=== PATIENT | female | born 1965 | race Caucasian/White ===

== ENCOUNTER → 2020-04-04 | Day surgery (SDC) | payer OTHER ==
--- OUTSIDE RECORDS SUMMARY | 2020-04-04 10:18 | XMS ---
:1965 Author Organization [facility] Care Team Providers Name Role Phone Trey Stern Unavailable Apuzzo, Ken Unavailable Apuzzo, Ken Unavailable Apuzzo, Ken Unavailable Apuzzo, Ken Unavailable Apuzzo, Ken Unavailable Apuzzo, Ken Unavailable Apuzzo, Ken Unavailable Apuzzo, Ken Unavailable Apuzzo, Ken Unavailable Re-disclosure Warning The records that you are about to access may contain information from federally- assisted alcohol or drug abuse programs. If such information is present, then the following federally mandated warning applies: This information has been disclosed to you from records protected by federal confidentiality rules (42 CFR part 2). The federal rules prohibit you from making any further disclosure of this information unless further disclosure is expressly permitted by the written consent of the person to whom it pertains or as otherwise permitted by 42 CFR part 2. A general authorization for the release of medical or other information is NOT sufficient for this purpose. The Federal rules restrict any use of the information to criminally investigate or prosecute any alcohol or drug abuse patient.The records that you are about to access may contain highly sensitive health information, the redisclosure of which is protected by Article 27-F of the [place] State Public Health law. If you continue you may haveaccess to information: Regarding HIV / AIDS; Provided by facilities licensed or operated by the [facility] Office of Mental Health; or Provided by the [facility] Office for People With Developmental Disabilities. If such information is present, then the following [facility] mandated warning applies: This information has been disclosed to you from confidential records which are protected by state law. State law prohibits you from making any further disclosure of this information without the specific written consent of the person to whom it pertains, or as otherwise permitted by law. Any unauthorized further disclosure in violation of state law may result in a fine or penitentiary sentence or both. A general authorization for the release of medical or other information is NOT sufficient authorization for further disclosure. Encounters Encounter Providers Location Date Indications Data Source(s ) Attender: Trey 03/17/2020 [facility] ( [facility] [place] 12:00:00 AM ED Medical, ) Office Attender: Trey Stern 03/17/2020 12:00:00 AM EDT [facility] ([facility]) Office Attender: Trey Stern 02/25/2020 12:00:00 AM EDT [facility] ([facility]) Office Attender: Trey Stern 02/25/2020 12:00:00 AM EDT [facility] ([facility]) Office Attender: Trey Stern 02/25/2020 12:00:00 AM EDT [facility] ([facility]) Office Medications Medication Brand Start Product Dose Route Administrative Pharmacy [facility] Indications Reaction Description Data Name Date Form Instructions Instructions Source(s) atorvastati ATORVA 03/17/ TABLET 90 complet ATOR VASTATIN [facility] (St n 10 MG STATIN 2019 [facility] Oral Tablet :03330 12:00: Medi miranda, ATORVASTATI 2 00 AM PC) N:[id number] EDT cetirizine CETIRI 02/24/ TABLET 30 complet CETIR IZINE [facility] (St [facility] [id number] 12:00: Medical , Oral Tablet 00 AM PC) CETIRIZINE: EDT [id number] Aspirin 81 ASPIR 02/24/ DELAYED 90 complet ASPIR 81 [facility] (St MG Delayed 81:308 2019 RELEASE ed [facility] 416 12:00: TABLET Medical, Oral Tablet 00 AM PC) ASPIR EDT 81:074059 cetirizine CETIRI 02/24/ TABLET 30 complet CETIR IZINE [facility] (St hydrochlori ZINE:1 2019 ed [facility] de 10 MG [id number] 12:00: Medical , Oral Tablet 00 AM PC) CETIRIZINE: EDT [id number] Aspirin 81 ASPIR 02/24/ DELAYED 90 complet ASPIR 81 [facility] (St MG Delayed 81:308 2020 RELEASE ed [facility] 416 12:00: TABLET Medical, Oral Tablet 00 AM PC) ASPIR EDT 81:[id number] Insurance Providers Payer name Policy type Policy ID Covered Covered libertarian's Policy P reji / Coverage libertarian ID relationship to Love Inf ormation type love YOHANNES [id number] [place] [address] NON [facility] CARE [id number] [place] [id number] ESSENTIAL ([employer]/[place]) MEGAN Problems, Conditions, and Diagnoses Code Display Name Description Problem Type Effective Data Sour ce(s) Dates E55.9 Vitamin D VITAMIN D Problem 03/17/2020 [facility] (St deficiency, DEFICIENCY, 12:00:00 AM [facility], unspecified UNSPECIFIED EDT PC) E78.5 Hyperlipidemia, HYPERLIPIDEMIA, Problem 02/25/2020 MEDG EN (St unspecified UNSPECIFIED 12:00:00 AM [facility], EDT PC) Z00.01 Encounter for ENCOUNTER FOR Problem 02/25/2020 [facility] ( St general adult GENERAL ADULT 12:00:00 AM [facility], medical MEDICAL EDT PC) examination with EXAMINATION WITH abnormal findings ABNORMAL FINDINGS R06.02 Shortness of SHORTNESS OF Problem 02/25/2020 [facility] (St breath BREATH 12:00:00 AM [facility], EDT PC) E78.5 Hyperlipidemia, HYPERLIPIDEMIA, Problem 02/25/2020 MED[facility] EN (St unspecified UNSPECIFIED 12:00:00 AM [facility], EDT PC) Z00.01 Encounter for ENCOUNTER FOR Problem 02/25/2020 [facility] ( St general adult GENERAL ADULT 12:00:00 AM [facility], medical MEDICAL EDT PC) examination with EXAMINATION WITH abnormal findings ABNORMAL FINDINGS R06.02 Shortness of SHORTNESS OF Problem 02/25/2020 [facility] (St breath BREATH 12:00:00 AM [facility], EDT PC) M54.5 Low back pain LOW BACK PAIN Problem 07/30/2017 [facility] ( St 12:00:00 AM [facility], EST PC) I49.9 Cardiac CARDIAC Problem 07/30/2017 [facility] (St arrhythmia, ARRHYTHMIA, 12:00:00 AM [facility], unspecified UNSPECIFIED EST PC) G43.009 Migraine without MIGRAINE WITHOUT Problem 07/30/2017 ME D[facility] (St aura, not AURA, NOT 12:00:00 AM [facility], intractable, INTRACTABLE, EST PC) without status WITHOUT STATUS migrainosus MIGRAINOSUS R31.9 Hematuria, HEMATURIA, Problem 07/30/2017 [facility] (St unspecified UNSPECIFIED 12:00:00 AM [facility], EST PC) R00.2 Palpitations PALPITATIONS Problem 07/30/2017 [facility] (St 12:00:00 AM [facility], EST PC) M54.5 Low back pain LOW BACK PAIN Problem 07/30/2017 [facility] ( St 12:00:00 AM [facility], EST PC) I49.9 Cardiac CARDIAC Problem 07/30/2017 [facility] (St arrhythmia, ARRHYTHMIA, 12:00:00 AM [facility], unspecified UNSPECIFIED EST PC) G43.009 Migraine without MIGRAINE WITHOUT Problem 07/30/2017 ME D[facility] (St aura, not AURA, NOT 12:00:00 AM [facility], intractable, INTRACTABLE, EST PC) without status WITHOUT STATUS migrainosus MIGRAINOSUS R31.9 Hematuria, HEMATURIA, Problem 07/30/2017 [facility] (St unspecified UNSPECIFIED 12:00:00 AM [facility], EST PC) R00.2 Palpitations PALPITATIONS Problem 07/30/2017 [facility] (St 12:00:00 AM [facility], EST PC) M79.7 Fibromyalgia FIBROMYALGIA Problem 11/15/2016 [facility] (St 12:00:00 AM [facility], EDT PC) E78.2 Mixed MIXED Problem 11/15/2016 [facility] (St hyperlipidemia HYPERLIPIDEMIA 12:00:00 AM [facility], EDT PC) R10.2 Pelvic and PELVIC AND Problem 11/15/2016 [facility] (St perineal pain PERINEAL PAIN 12:00:00 AM [facility], EDT PC) M79.7 Fibromyalgia FIBROMYALGIA Problem 11/15/2016 [facility] (St 12:00:00 AM [facility], EDT PC) E78.2 Mixed MIXED Problem 11/15/2016 [facility] (St hyperlipidemia HYPERLIPIDEMIA 12:00:00 AM [facility], EDT PC) R10.2 Pelvic and PELVIC AND Problem 11/15/2016 [facility] (St perineal pain PERINEAL PAIN 12:00:00 AM [facility], EDT PC) Z11.1 Encounter for Encounter for Diagnosis 09/02/2018 [facility] screening for screening for 07:32:43 PM [place] respiratory respiratory [facility]) Surgeries/Procedures Procedure Description Date Indications Data Source(s) Documentation of current 03/17/2020 [facility] ([facility] medications (procedure) 12:00:00 AM EDT sammie, NATALIE) OFFICE OUTPATIENT VISIT 03/17/2020 [facility] ([facility] 15 MINUTES 12:00:00 AM EDT Medical, PC) Documentation of current 02/25/2020 [facility] ([facility] medications (procedure) 12:00:00 AM EDT sammie PC) Documentation of current 02/25/2020 [facility] ([facility] medications (procedure) 12:00:00 AM EDT sammie, PC) Documentation of current 02/25/2020 [facility] ([facility] medications (procedure) 12:00:00 AM EDT sammie, PC) Documentation of current 02/25/2020 [facility] ([facility] medications (procedure) 12:00:00 AM EDT sammie, PC) ECG ROUTINE ECG W/LEAST 02/25/2020 [facility] ([facility] 12 LDS W/I&R 12:00:00 AM EDT Medical, PC) COLLECTION VENOUS BLOOD 02/25/2020 [facility] ([facility] VENIPUNCTURE 12:00:00 AM EDT Medical, PC) Documentation of current 02/25/2020 [facility] ([facility] medications (procedure) 12:00:00 AM EDT sammie, PC) Documentation of current 02/25/2020 [facility] ([facility] ECG ROUTINE ECG W/LEAST 02/25/2020 [facility] ([facility] 12 LDS W/I&R 12:00:00 AM EDT Medical, ) COLLECTION VENOUS BLOOD 02/25/2020 [facility] ([facility] VENIPUNCTURE 12:00:00 AM EDT Medical, ) OFFICE OUTPATIENT VISIT 07/30/2017 [facility] ([facility] 15 MINUTES 12:00:00 AM EST Medical, ) HANDLG&/OR CONVEY OF SPEC 07/30/2017 ME D[facility] ([facility] FOR TR OFFICE TO LAB 12:00:00 AM EST [facility], ) ECG ROUTINE ECG W/LEAST 07/30/2017 [facility] EN ([facility] 12 LDS W/I&R 12:00:00 AM EST Medical, ) COLLECTION VENOUS BLOOD 07/30/2017 [facility] EN ([facility] VENIPUNCTURE 12:00:00 AM EST Medical, ) OFFICE OUTPATIENT VISIT 07/30/2017 [facility] ([facility] 15 MINUTES 12:00:00 AM EST Medical, PC) HANDLG&/OR CONVEY OF SPEC 07/30/2017 ME D[facility] ([facility] FOR TR OFFICE TO LAB 12:00:00 AM EST [facility], ) ECG ROUTINE ECG W/LEAST 07/30/2017 [facility] EN ([facility] 12 LDS W/I&R 12:00:00 AM EST Medical, ) COLLECTION VENOUS BLOOD 07/30/2017 [facility] EN ([facility] VENIPUNCTURE 12:00:00 AM EST Medical, ) OFFICE OUTPATIENT VISIT 11/15/2016 [facility] ([facility] 15 MINUTES 12:00:00 AM EDT Medical, ) COLLECTION VENOUS BLOOD 11/15/2016 [facility] EN ([facility] VENIPUNCTURE 12:00:00 AM EDT Medical, PC) OFFICE OUTPATIENT VISIT 11/15/2016 [facility] ([facility] 15 MINUTES 12:00:00 AM EDT Medical, PC) COLLECTION VENOUS BLOOD 11/15/2016 [facility] EN ([facility] VENIPUNCTURE 12:00:00 AM EDT Medical, ) Results ID Date Data Source [id number] 02/25/2020 12:00:00 AM EDT [facility] (St [facility], ) Name Value Range Interpretation Description Data Sup porting Code Source(s) Document(s ) Vitamin D, 17.7 Below low normal [facility] (St 25-Hydroxy ng/mL [facility]) ID Date Data Source [id number] 02/25/2020 12:00:00 AM EDT [facility] ([facility], ) Name Value Range Interpretation Description Data Sup porting Code Source(s) Document(s ) Cholesterol 277 Above high normal [facility] (St [Mass/volume] in mg/dL [facility] Serum or Plasma [facility], ) Triglyceride 190 Above high normal [facility] (S t [Mass/volume] in mg/dL [facility]'s Serum or Plasma [facility], ) HDL Cholesterol 56 mg/dL Normal (applies [facility] ( St to non-numeric [facility] results) Medical, ) VLDL Cholesterol 38 mg/dL Normal (applies [facility] (St Miranda to non-numeric [facility] results) Medical, ) LDL Cholesterol 183 Above high normal [facility] (St Calc mg/dL [facility]) ID Date Data Source [id number] 02/25/2020 12:00:00 AM EDT [facility] ([facility], ) Name Value Range Interpretation Description Data Sup porting Code Source(s) Document(s ) Glucose 112 Above high [facility] (St [Mass/volume] in mg/dL normal [facility] Urine collected for Medical, unspecified PC) duration Urea nitrogen 14 mg/dL Normal (applies [facility] (St [Mass/volume] in to non-numeric [facility] Serum or Plasma results) Medical, ) Creatinine 0.79 Normal (applies [facility] (St [Interpretation] in mg/dL to non-numeric [facility] Urine results) Medical, ) eGFR If Africn Am 97 Normal (applies [facility] (St mL/min/1 to non-numeric [facility] .73 results) Medical, PC) eGFR If NonAfricn 85 Normal (applies [facility] (St Am mL/min/1 to non-numeric [facility] .73 results) Medical, ) BUN/Creatinine 18 Normal (applies [facility] (S t Ratio to non-numeric [facility] results) Medical, ) Sodium 138 Normal (applies [facility] (St [Moles/volume] in mmol/L to non-numeric [facility] Serum or Plasma results) Medical, PC) Potassium 4.1 Normal (applies [facility] (St [Mass/volume] in mmol/L to non-numeric [facility] Blood results) Medical, ) Chloride 102 Normal (applies [facility] (St [Moles/volume] in mmol/L to non-numeric [facility] Serum or Plasma results) Medical, ) Carbon dioxide, 24 Normal (applies [facility] ( St total mmol/L to non-numeric [facility] [Moles/volume] in results) Medical, Serum or Plasma PC) Calcium 9.5 Normal (applies [facility] (St [Moles/volume] in mg/dL to non-numeric [facility] Urine collected for results) Medical, unspecified PC) duration Protein 7.5 g/dL Normal (applies [facility] (St [Mass/volume] in to non-numeric [facility] Serum or Plasma results) Medical, ) Microalbumin 4.8 g/dL Normal (applies [facility] (St [Mass/time] in to non-numeric [facility] Urine collected for results) Medical, unspecified PC) duration Globulin, Total 2.7 g/dL Normal (applies [facility] ( St to non-numeric [facility] results) Medical, PC) A/G Ratio 1.8 Normal (applies [facility] (St to non-numeric [facility] results) Medical, PC) Bilirubin.total 0.8 Normal (applies [facility] ( St [Mass/volume] in mg/dL to non-numeric [facility] Serum or Plasma results) Medical, ) Alkaline 85 IU/L Normal (applies [facility] (St phosphatase to non-numeric [facility] [Enzymatic results) Medical, activity/volume] in PC) Serum, Plasma or Blood Aspartate 17 IU/L Normal (applies [facility] (St aminotransferase to non-numeric [facility] [Enzymatic results) Medical, activity/volume] in PC) Serum or Plasma Alanine 21 IU/L Normal (applies [facility] (St aminotransferase to non-numeric [facility] [Enzymatic results) Medical, activity/volume] in PC) Serum or Plasma ID Date Data Source [id number] 02/25/2020 12:00:00 AM EDT [facility] ([facility], ) Name Value Range Interpretation Description Data Sup porting Code Source(s) Document(s ) Leukocytes 6.9 Normal (applies [facility] (St [#/volume] in x10E3/uL to non-numeric [facility] Blood by results) [facility], ) Automated count Erythrocytes 4.82 Normal (applies [facility] (St [#/volume] in x10E6/uL to non-numeric [facility] Blood by results) [facility], ) Automated count Hemoglobin 14.2 Normal (applies [facility] (St [Mass/volume] in g/dL to non-numeric [facility] Blood results) [facility], ) Hematocrit 41.7 % Normal (applies [facility] (St [Volume to non-numeric [facility] Fraction] of results) [facility], ) Blood by Automated count MCV 87 fL Normal (applies [facility] (St to non-numeric [facility] results) [facility], ) MCH 29.5 pg Normal (applies [facility] (St to non-numeric [facility] results) [facility], ) MCHC 34.1 Normal (applies [facility] (St g/dL to non-numeric [facility] results) [facility], ) RDW 13.2 % Normal (applies [facility] (St to non-numeric [facility] results) [facility], ) Platelets 298 Normal (applies [facility] (St [#/area] in x10E3/uL to non-numeric [facility] Blood by results) [facility], ) Microscopy high power field Neutrophils [#] 49 % Normal (applies [facility] ( St in Body fluid by to non-numeric [facility] Manual count results) [facility], ) Lymphs 42 % Normal (applies [facility] (St to non-numeric [facility] results) [facility], ) Monocytes 6 % Normal (applies [facility] (St [#/volume] in to non-numeric [facility] Cord blood results) [facility], ) Eos 2 % Normal (applies [facility] (St to non-numeric [facility] results) [facility], ) Basos 1 % Normal (applies [facility] (St to non-numeric [facility] results) [facility], ) Neutrophils 3.4 Normal (applies [facility] (St (Absolute) x10E3/uL to non-numeric [facility] results) [facility], ) Lymphs 2.9 Normal (applies [facility] (St (Absolute) x10E3/uL to non-numeric [facility] results) [facility], ) Monocytes(Absolu 0.4 Normal (applies [facility] (St te) x10E3/uL to non-numeric [facility] results) Medical, ) Eos (Absolute) 0.2 Normal (applies [facility] (S t x10E3/uL to non-numeric [facility] results) Medical, ) Baso (Absolute) 0.0 Normal (applies [facility] ( St x10E3/uL to non-numeric [facility] results) Medical, ) Immature 0 % Normal (applies [facility] (St Granulocytes to non-numeric [facility] results) Medical, ) Immature Grans 0.0 Normal (applies [facility] (S t (Abs) x10E3/uL to non-numeric [facility] results) Medical, ) ID Date Data Source [id number] 02/25/2020 12:00:00 AM EDT [facility], ) Name Value Range Interpretation Code Description Data Rhonda rce(s) Supporting Document(s ) TSH 2.060 Normal (applies to [facility] (St uIU/mL non-numeric [facility] results) Medical, ) T4,Free(D 1.09 ng/dL Normal (applies to [facility] (St irect) non-numeric [facility] results) Medical, ) ID Date Data Source [id number] 02/16/2020 02:03:00 PM EDT [facility] Name Value Range Interpretation Code Description Data Rhonda rce(s) Supporting Document(s ) SARS-CoV-2 [facility] (COVID19) This lab was ordered by [facility] and reported by [facility]. ID Date Data Source [id number] 07/30/2017 12:00:00 AM EST [facility], ) Name Value Range Interpretation Code Description Data Rhonda rce(s) Supporting Document(s ) Result 1 No growth Normal (applies to [facility] (St non-numeric [facility] results) Medical, ) ID Date Data Source [id number] 07/30/2017 12:00:00 AM EST [facility], ) Name Value Range Interpretation Description Data Sup porting Code Source(s) Document(s ) Urine Final Normal (applies to [facility] (St Culture, report non-numeric [facility] Routine results) Medical, ) ID Date Data Source [id number] 07/30/2017 12:00:00 AM EST [facility] ([facility], ) Name Value Range Interpretation Description Data Sup porting Code Source(s) Document(s ) TSH 1.860 Normal (applies to [facility] (St uIU/mL non-numeric [facility] results) [facility], ) Thyroxine 7.0 ug/dL Normal (applies to [facility] (St (T4) non-numeric [facility] results) [facility], ) Free 1.5 Normal (applies to [facility] (St Thyroxine non-numeric [facility] Index results) [facility], ) T3 Uptake 22 % Below low normal [facility] ([facility], ) ID Date Data Source [id number] 07/30/2017 12:00:00 AM EST [facility] ([facility], ) Name Value Range Interpretation Description Data Sup porting Code Source(s) Document(s ) Cholesterol 276 Above high normal [facility] (St [Mass/volume] in mg/dL [facility]'s Serum or Plasma [facility], ) Triglyceride 283 Above high normal [facility] (S t [Mass/volume] in mg/dL [facility], ) HDL Cholesterol 50 mg/dL Normal (applies [facility] ( St to non-numeric [facility] results) [facility], ) VLDL Cholesterol 57 mg/dL Above high normal [facility] N ([facility], ) LDL Cholesterol 169 Above high normal [facility] (St Calc mg/dL [facility]) ID Date Data Source [id number] 07/30/2017 12:00:00 AM EST [facility] ([facility], ) Name Value Range Interpretation Description Data Sup porting Code Source(s) Document(s ) WBC None seen Normal (applies to [facility] (St non-numeric [facility] results) [facility], ) RBC 3-10 Abnormal (applies [facility] (St to non-numeric [facility] results) [facility], ) Epithelial 0-10 Normal (applies to [facility] (St Cells (non non-numeric [facility] renal) results) [facility], ) Bacteria None seen Normal (applies to [facility] (St [Presence] in non-numeric [facility] Prostatic results) [facility], ) fluid by Light microscopy ID Date Data Source [id number] 07/30/2017 12:00:00 AM EST [facility] ([facility], ) Name Value Range Interpretation Description Data Sup porting Code Source(s) Document(s ) Specific gravity 1.014 Normal (applies [facility] (St of Pericardial to non-numeric [facility] fluid by results) Medical, Refractometry PC) pH of Lower 8.5 Above high [facility] (St respiratory normal [facility] specimen Medical, PC) Urine-Color Yellow Normal (applies [facility] (St to non-numeric [facility] results) Medical, PC) Appearance of Clear Normal (applies [facility] (St Abdomen to non-numeric [facility] results) Medical, PC) WBC Esterase Negative Normal (applies [facility] (St to non-numeric [facility] results) Medical, PC) Protein Negative Normal (applies [facility] (St [Mass/volume] in to non-numeric [facility] Lower results) Medical, respiratory PC) specimen Glucose Negative Normal (applies [facility] (St [Mass/volume] in to non-numeric [facility] Urine collected results) [facility], for unspecified PC) duration Ketones Negative Normal (applies [facility] (St [Presence] in to non-numeric [facility] Blood by Tablet results) Medical, PC) Occult Blood Trace Abnormal [facility] (St (applies to [facility] non-numeric Medical, results) PC) Bilirubin Negative Normal (applies [facility] (St [Presence] in to non-numeric [facility] Peritoneal fluid results) Medical, PC) Urobilinogen,Jeremías 0.2 EU/dL Normal (applies [facility] (St i-Qn to non-numeric [facility] results) Medical, PC) Nitrite, Urine Negative Normal (applies [facility] (S t to non-numeric [facility] results) Medical, PC) Microscopic See below: Normal (applies [facility] (St Examination to non-numeric [facility] results) Medical, ) ID Date Data Source [id number] 07/30/2017 12:00:00 AM EST [facility], [facility]) Name Value Range Interpretation Description Data Sup porting Code Source(s) Document(s ) Glucose, Serum 87 mg/dL Normal (applies [facility] (S t to non-numeric [facility] results) Medical, PC) Urea nitrogen 10 mg/dL Normal (applies [facility] (St [Mass/volume] in to non-numeric [facility] Serum or Plasma results) Medical, PC) Creatinine, Serum 0.86 Normal (applies [facility] (St mg/dL to non-numeric [facility] results) Medical, ) eGFR If NonAfricn 77 Normal (applies [facility] (St Am mL/min/1 to non-numeric [facility] .73 results) Medical, ) eGFR If Africn Am 89 Normal (applies [facility] (St mL/min/1 to non-numeric [facility] .73 results) Medical, ) BUN/Creatinine 12 Normal (applies [facility] (S t Ratio to non-numeric [facility] results) Medical, ) Sodium 141 Normal (applies [facility] (St [Moles/volume] in mmol/L to non-numeric [facility] Serum or Plasma results) Medical, ) Potassium, Serum 4.3 Normal (applies [facility] (St mmol/L to non-numeric [facility] results) Medical, ) Chloride 99 Normal (applies [facility] (St [Moles/volume] in mmol/L to non-numeric [facility] Serum or Plasma results) Medical, ) Carbon dioxide, 27 Normal (applies [facility] ( St total mmol/L to non-numeric [facility] [Moles/volume] in results) Medical, Serum or Plasma PC) Protein 7.7 g/dL Normal (applies [facility] (St [Mass/volume] in to non-numeric [facility] Serum or Plasma results) Medical, ) Calcium, Serum 9.9 Normal (applies [facility] (S t mg/dL to non-numeric [facility] results) Medical, ) Albumin, Serum 4.7 g/dL Normal (applies [facility] (S t to non-numeric [facility] results) Medical, ) Globulin, Total 3.0 g/dL Normal (applies [facility] ( St to non-numeric [facility] results) Medical, ) A/G Ratio 1.6 Normal (applies [facility] (St to non-numeric [facility] results) Medical, ) Bilirubin.total 0.8 Normal (applies [facility] ( St [Mass/volume] in mg/dL to non-numeric [facility] Serum or Plasma results) Medical, ) Alkaline 97 IU/L Normal (applies [facility] (St Phosphatase, S to non-numeric [facility] results) Medical, ) Aspartate 22 IU/L Normal (applies [facility] (St aminotransferase to non-numeric [facility] [Enzymatic results) Medical, activity/volume] in PC) Serum or Plasma Alanine 25 IU/L Normal (applies [facility] (St aminotransferase to non-numeric [facility] [Enzymatic results) Medical, activity/volume] in PC) Serum or Plasma ID Date Data Source [id number] 07/30/2017 12:00:00 AM EST [facility] ([facility], ) Name Value Range Interpretation Description Data Sup porting Code Source(s) Document(s ) Leukocytes 7.2 Normal (applies [facility] (St [#/volume] in x10E3/uL to non-numeric [facility] Blood by results) Medical, ) Automated count Erythrocytes 4.88 Normal (applies [facility] (St [#/volume] in x10E6/uL to non-numeric [facility] Blood by results) Medical, ) Automated count Hemoglobin 14.6 Normal (applies [facility] (St [Mass/volume] in g/dL to non-numeric [facility] Blood results) Medical, ) Hematocrit 43.2 % Normal (applies [facility] (St [Volume to non-numeric [facility] Fraction] of results) Medical, ) Blood by Automated count MCV 89 fL Normal (applies [facility] (St to non-numeric [facility] results) Medical, ) MCH 29.9 pg Normal (applies [facility] (St to non-numeric [facility] results) Medical, ) MCHC 33.8 Normal (applies [facility] (St g/dL to non-numeric [facility] results) Medical, ) RDW 13.7 % Normal (applies [facility] (St to non-numeric [facility] results) Medical, ) Platelets 289 Normal (applies [facility] (St [#/area] in x10E3/uL to non-numeric [facility] Blood by results) Medical, ) Microscopy high power field Neutrophils [#] 37 % Normal (applies [facility]GEN ( St in Body fluid by to non-numeric [facility] Manual count results) Medical, ) Lymphs 54 % Normal (applies [facility] (St to non-numeric [facility] results) Medical, ) Monocytes 6 % Normal (applies [facility] (St [#/volume] in to non-numeric [facility] Cord blood results) Medical, ) Eos 3 % Normal (applies [facility] (St to non-numeric [facility] results) Medical, ) Basos 0 % Normal (applies [facility] (St to non-numeric [facility] results) Medical, ) Neutrophils 2.7 Normal (applies [facility] (St (Absolute) x10E3/uL to non-numeric [facility] results) [facility]) Lymphs 3.9 Above high normal MEDGEN (St (Absolute) x10E3/uL [facility]) Monocytes(Absolu 0.5 Normal (applies [facility] (St te) x10E3/uL to non-numeric [facility] results) [facility]) Eos (Absolute) 0.2 Normal (applies [facility] (S t x10E3/uL to non-numeric [facility] results) [facility]) Baso (Absolute) 0.0 Normal (applies MEDGEN ( St x10E3/uL to non-numeric [facility] results) [facility], ) Immature 0 % Normal (applies [facility] (St Granulocytes to non-numeric [facility] results) [facility]) Immature Grans 0.0 Normal (applies [facility] (S t (Abs) x10E3/uL to non-numeric [facility] results) [facility], ) ID Date Data Source [id number] 07/30/2017 12:00:00 AM EST [facility] ([facility]) Name Value Range Interpretation Code Description Data Rhonda rce(s) Supporting Document(s ) Result 1 No growth Normal (applies to [facility] (St non-numeric [facility] results) [facility]) ID Date Data Source [id number] 07/30/2017 12:00:00 AM EST [facility] ([facility]) Name Value Range Interpretation Description Data Sup porting Code Source(s) Document(s ) Urine Final Normal (applies to [facility] (St Culture, report non-numeric [facility] Routine results) [facility], ) ID Date Data Source [id number] 07/30/2017 12:00:00 AM EST [facility] ([facility]) Name Value Range Interpretation Description Data Sup porting Code Source(s) Document(s ) Thyroxine 7.0 ug/dL Normal (applies to [facility] (St (T4) non-numeric [facility] results) [facility]) TSH 1.860 Normal (applies to [facility] (St uIU/mL non-numeric [facility] results) [facility]) T3 Uptake 22 % Below low normal [facility] ([facility], ) Free 1.5 Normal (applies to [facility] (St Thyroxine non-numeric [facility] Index results) Medical, ) ID Date Data Source [id number] 07/30/2017 12:00:00 AM EST [facility] ([facility], ) Name Value Range Interpretation Description Data Sup porting Code Source(s) Document(s ) Cholesterol 276 Above high normal [facility] (St [Mass/volume] in mg/dL [facility] Serum or Plasma [facility], ) Triglyceride 283 Above high normal MED[facility] (S t [Mass/volume] in mg/dL [facility]'s Serum or Plasma [facility], ) HDL Cholesterol 50 mg/dL Normal (applies [facility] ( St to non-numeric [facility] results) Medical, ) VLDL Cholesterol 57 mg/dL Above high normal [facility]GE N ([facility], ) LDL Cholesterol 169 Above high normal [facility] (St Calc mg/dL [facility], ) ID Date Data Source [id number] 07/30/2017 12:00:00 AM EST [facility] ([facility], ) Name Value Range Interpretation Description Data Sup porting Code Source(s) Document(s ) WBC None seen Normal (applies to [facility] (St non-numeric [facility] results) Medical, ) RBC 3-10 Abnormal (applies [facility] (St to non-numeric [facility] results) Medical, ) Epithelial 0-10 Normal (applies to [facility] (St Cells (non non-numeric [facility] renal) results) Medical, ) Bacteria None seen Normal (applies to [facility] (St [Presence] in non-numeric [facility] Prostatic results) Medical, ) fluid by Light microscopy ID Date Data Source [id number] 07/30/2017 12:00:00 AM EST [facility] ([facility], ) Name Value Range Interpretation Description Data Sup porting Code Source(s) Document(s ) Specific gravity 1.014 Normal (applies [facility] (St of Pericardial to non-numeric [facility] fluid by results) Medical, Refractometry ) pH of Lower 8.5 Above high [facility] (St respiratory normal [facility] specimen Medical, ) Urine-Color Yellow Normal (applies [facility] (St to non-numeric [facility] results) Medical, ) Appearance of Clear Normal (applies [facility] (St Abdomen to non-numeric [facility] results) Medical, PC) WBC Esterase Negative Normal (applies [facility] (St to non-numeric [facility] results) Medical, PC) Glucose Negative Normal (applies [facility] (St [Mass/volume] in to non-numeric [facility] Urine collected results) Medical, for unspecified PC) duration Protein Negative Normal (applies [facility] (St [Mass/volume] in to non-numeric [facility] Lower results) Medical, respiratory PC) specimen Ketones Negative Normal (applies [facility] (St [Presence] in to non-numeric [facility] Blood by Tablet results) Medical, PC) Occult Blood Trace Abnormal [facility] (St (applies to [facility] non-numeric Medical, results) PC) Bilirubin Negative Normal (applies [facility] (St [Presence] in to non-numeric [facility] Peritoneal fluid results) Medical, PC) Nitrite, Urine Negative Normal (applies [facility] (S t to non-numeric [facility] results) Medical, PC) Urobilinogen,Jeremías 0.2 EU/dL Normal (applies [facility] (St i-Qn to non-numeric [facility] results) Medical, PC) Microscopic See below: Normal (applies [facility] (St Examination to non-numeric [facility] results) Medical, PC) ID Date Data Source [id number] 07/30/2017 12:00:00 AM EST [facility] ([facility]) Name Value Range Interpretation Description Data Sup porting Code Source(s) Document(s ) Glucose, Serum 87 mg/dL Normal (applies [facility] (S t to non-numeric [facility] results) Medical, PC) Creatinine, Serum 0.86 Normal (applies [facility] (St mg/dL to non-numeric [facility] results) Medical, PC) Urea nitrogen 10 mg/dL Normal (applies [facility] (St [Mass/volume] in to non-numeric [facility] Serum or Plasma results) Medical, ) eGFR If Africn Am 89 Normal (applies [facility] (St mL/min/1 to non-numeric [facility] .73 results) Medical, PC) eGFR If NonAfricn 77 Normal (applies [facility] (St Am mL/min/1 to non-numeric [facility] .73 results) Medical, PC) BUN/Creatinine 12 Normal (applies [facility] (S t Ratio to non-numeric [facility] results) Medical, PC) Sodium 141 Normal (applies [facility] (St [Moles/volume] in mmol/L to non-numeric [facility] Serum or Plasma results) Medical, ) Chloride 99 Normal (applies [facility] (St [Moles/volume] in mmol/L to non-numeric [facility] Serum or Plasma results) Medical, ) Potassium, Serum 4.3 Normal (applies [facility] (St mmol/L to non-numeric [facility] results) Medical, ) Calcium, Serum 9.9 Normal (applies [facility] (S t mg/dL to non-numeric [facility] results) Medical, ) Carbon dioxide, 27 Normal (applies [facility] ( St total mmol/L to non-numeric [facility] [Moles/volume] in results) Medical, Serum or Plasma PC) Protein 7.7 g/dL Normal (applies [facility] (St [Mass/volume] in to non-numeric [facility] Serum or Plasma results) Medical, ) Albumin, Serum 4.7 g/dL Normal (applies [facility] (S t to non-numeric [facility] results) Medical, ) Globulin, Total 3.0 g/dL Normal (applies [facility] ( St to non-numeric [facility] results) Medical, ) A/G Ratio 1.6 Normal (applies [facility] (St to non-numeric [facility] results) Medical, ) Bilirubin.total 0.8 Normal (applies [facility] ( St [Mass/volume] in mg/dL to non-numeric [facility] Serum or Plasma results) [facility], ) Aspartate 22 IU/L Normal (applies [facility] (St aminotransferase to non-numeric [facility] [Enzymatic results) Medical, activity/volume] in ) Serum or Plasma Alkaline 97 IU/L Normal (applies [facility] (St Phosphatase, S to non-numeric [facility] results) [facility], ) Alanine 25 IU/L Normal (applies [facility] (St aminotransferase to non-numeric [facility] [Enzymatic results) Medical, activity/volume] in ) Serum or Plasma ID Date Data Source [id number] 07/30/2017 12:00:00 AM EST [facility] ([facility], ) Name Value Range Interpretation Description Data Sup porting Code Source(s) Document(s ) Leukocytes 7.2 Normal (applies [facility] (St [#/volume] in x10E3/uL to non-numeric [facility] Blood by results) Medical, ) Automated count Erythrocytes 4.88 Normal (applies [facility] (St [#/volume] in x10E6/uL to non-numeric [facility] Blood by results) [facility], ) Automated count Hemoglobin 14.6 Normal (applies [facility] (St [Mass/volume] in g/dL to non-numeric [facility] Blood results) [facility], ) Hematocrit 43.2 % Normal (applies [facility] (St [Volume to non-numeric [facility] Fraction] of results) [facility], ) Blood by Automated count MCV 89 fL Normal (applies [facility] (St to non-numeric [facility] results) [facility], ) MCHC 33.8 Normal (applies [facility] (St g/dL to non-numeric [facility] results) [facility], ) MCH 29.9 pg Normal (applies [facility] (St to non-numeric [facility] results) [facility], ) Platelets 289 Normal (applies [facility] (St [#/area] in x10E3/uL to non-numeric [facility] Blood by results) [facility], ) Microscopy high power field RDW 13.7 % Normal (applies [facility] (St to non-numeric [facility] results) [facility], ) Monocytes 6 % Normal (applies [facility] (St [#/volume] in to non-numeric [facility] Cord blood results) [facility], ) Lymphs 54 % Normal (applies [facility] (St to non-numeric [facility] results) [facility]) Neutrophils [#] 37 % Normal (applies [facility] ( St in Body fluid by to non-numeric [facility] Manual count results) [facility], ) Eos 3 % Normal (applies [facility] (St to non-numeric [facility] results) [facility], ) Basos 0 % Normal (applies [facility] (St to non-numeric [facility] results) [facility], ) Lymphs 3.9 Above high normal [facility] (St (Absolute) x10E3/uL [facility], ) Neutrophils 2.7 Normal (applies [facility] (St (Absolute) x10E3/uL to non-numeric [facility] results) [facility]) Monocytes(Absolu 0.5 Normal (applies [facility] (St te) x10E3/uL to non-numeric [facility] results) [facility], ) Eos (Absolute) 0.2 Normal (applies [facility] (S t x10E3/uL to non-numeric [facility] results) Medical, ) Baso (Absolute) 0.0 Normal (applies [facility] ( St x10E3/uL to non-numeric [facility] results) Medical, ) Immature 0 % Normal (applies [facility] (St Granulocytes to non-numeric [facility] results) Medical, ) Immature Grans 0.0 Normal (applies [facility] (S t (Abs) x10E3/uL to non-numeric [facility] results) Medical, ) ID Date Data Source [id number] 11/15/2016 12:00:00 AM EDT [facility] ([facility], ) Name Value Range Interpretation Description Data Sup porting Code Source(s) Document(s ) Bilirubin.c 0.16 mg/dL Normal (applies to [facility] ( St onjugated non-numeric [facility] [Mass/volum results) Medical, ) e] in Serum or Plasma ID Date Data Source [id number] 11/15/2016 12:00:00 AM EDT [facility] ([facility], ) Name Value Range Interpretation Description Data Sup porting Code Source(s) Document(s ) Glucose, Serum 87 mg/dL Normal (applies [facility] (S t to non-numeric [facility] results) Medical, ) Urea nitrogen 14 mg/dL Normal (applies [facility] (St [Mass/volume] in to non-numeric [facility] Serum or Plasma results) Medical, ) Creatinine, Serum 0.90 Normal (applies [facility] (St mg/dL to non-numeric [facility] results) Medical, ) eGFR If NonAfricn 74 Normal (applies [facility] (St Am mL/min/1 to non-numeric [facility] .73 results) Medical, ) eGFR If Africn Am 85 Normal (applies [facility] (St mL/min/1 to non-numeric [facility] .73 results) Medical, ) BUN/Creatinine 16 Normal (applies [facility] (S t Ratio to non-numeric [facility] results) Medical, ) Sodium 143 Normal (applies [facility] (St [Moles/volume] in mmol/L to non-numeric [facility] Serum or Plasma results) Medical, ) Potassium, Serum 4.5 Normal (applies [facility] (St mmol/L to non-numeric [facility] results) Medical, ) Chloride 100 Normal (applies [facility] (St [Moles/volume] in mmol/L to non-numeric [facility] Serum or Plasma results) Medical, ) Carbon dioxide, 25 Normal (applies [facility] ( St total mmol/L to non-numeric [facility] [Moles/volume] in results) Medical, Serum or Plasma PC) Protein 7.8 g/dL Normal (applies [facility] (St [Mass/volume] in to non-numeric [facility] Serum or Plasma results) [facility], ) Calcium, Serum 9.8 Normal (applies [facility] (S t mg/dL to non-numeric [facility] results) [facility], ) Albumin, Serum 4.9 g/dL Normal (applies [facility] (S t to non-numeric [facility] results) [facility], ) Globulin, Total 2.9 g/dL Normal (applies [facility] ( St to non-numeric [facility] results) [facility], ) A/G Ratio 1.7 Normal (applies [facility] (St to non-numeric [facility] results) [facility], ) Bilirubin.total 0.8 Normal (applies [facility] ( St [Mass/volume] in mg/dL to non-numeric [facility] Serum or Plasma results) [facility], ) Alkaline 96 IU/L Normal (applies [facility] (St Phosphatase, S to non-numeric [facility] results) [facility], ) Aspartate 17 IU/L Normal (applies [facility] (St aminotransferase to non-numeric [facility] [Enzymatic results) Medical, activity/volume] in PC) Serum or Plasma Alanine 19 IU/L Normal (applies [facility] (St aminotransferase to non-numeric [facility] [Enzymatic results) Medical, activity/volume] in PC) Serum or Plasma ID Date Data Source [id number] 11/15/2016 12:00:00 AM EDT [facility] ([facility], ) Name Value Range Interpretation Description Data Sup porting Code Source(s) Document(s ) Bilirubin.c 0.16 mg/dL Normal (applies to [facility] ( St onjugated non-numeric [facility] [Mass/volum results) [facility], ) e] in Serum or Plasma ID Date Data Source [id number] 11/15/2016 12:00:00 AM EDT [facility] ([facility], ) Name Value Range Interpretation Description Data Sup porting Code Source(s) Document(s ) Glucose, Serum 87 mg/dL Normal (applies [facility] (S t to non-numeric [facility] results) Medical, ) Urea nitrogen 14 mg/dL Normal (applies [facility] (St [Mass/volume] in to non-numeric [facility] Serum or Plasma results) Medical, ) Creatinine, Serum 0.90 Normal (applies [facility] (St mg/dL to non-numeric [facility] results) Medical, ) BUN/Creatinine 16 Normal (applies MED[facility] (S t Ratio to non-numeric [facility] results) Medical, ) eGFR If Africn Am 85 Normal (applies [facility] (St mL/min/1 to non-numeric [facility] .73 results) Medical, ) eGFR If NonAfricn 74 Normal (applies MEDGEN (St Am mL/min/1 to non-numeric [facility] .73 results) Medical, ) Potassium, Serum 4.5 Normal (applies [facility] (St mmol/L to non-numeric [facility] results) Medical, ) Sodium 143 Normal (applies [facility] (St [Moles/volume] in mmol/L to non-numeric [facility] Serum or Plasma results) Medical, ) Chloride 100 Normal (applies [facility] (St [Moles/volume] in mmol/L to non-numeric [facility] Serum or Plasma results) Medical, ) Carbon dioxide, 25 Normal (applies MEDGEN ( St total mmol/L to non-numeric [facility] [Moles/volume] in results) Medical, Serum or Plasma PC) Calcium, Serum 9.8 Normal (applies [facility]GEN (S t mg/dL to non-numeric [facility] results) Medical, ) Protein 7.8 g/dL Normal (applies [facility] (St [Mass/volume] in to non-numeric [facility] Serum or Plasma results) Medical, ) Albumin, Serum 4.9 g/dL Normal (applies MEDGEN (S t to non-numeric [facility] results) Medical, ) Globulin, Total 2.9 g/dL Normal (applies MEDGEN ( St to non-numeric [facility] results) Medical, ) Bilirubin.total 0.8 Normal (applies MED[facility] ( St [Mass/volume] in mg/dL to non-numeric [facility] Serum or Plasma results) Medical, ) A/G Ratio 1.7 Normal (applies [facility] (St to non-numeric [facility] results) Medical, PC) Aspartate 17 IU/L Normal (applies MED[facility] (St aminotransferase to non-numeric [facility] [Enzymatic results) Medical, activity/volume] in PC) Serum or Plasma Alkaline 96 IU/L Normal (applies [facility] (St Phosphatase, S to non-numeric [facility] results) Medical, PC) Alanine 19 IU/L Normal (applies [facility] (St aminotransferase to non-numeric [facility] [Enzymatic results) Medical, activity/volume] in PC) Serum or Plasma Procedure Social History Code Duration Value Status Description Data Source(s ) Smoking 03/17/2020 (-)SMOKE (-)ETOH completed (-)SMOKE (-)ETOH 1 [facility] ([address] 12:00:00 AM EDT 1 coffee/day-trying [facility], coffee/day-trying to avoid caffiene PC) 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 02/17 (-)Covid 02/17 lives with spouse lives with spouse and 1 child 1 and 1 child 1 grandchild grandchild exercises 2x/week exercises 2x/week Smoking 03/17/2020 Unknown if ever completed Unknown if ever MEDG EN (St 12:00:00 AM EDT smoked smoked [facility], PC) Smoking 02/25/2020 (-)SMOKE (-)ETOH completed (-)SMOKE (-)ETOH 1 [facility] (St 12:00:00 AM EDT 1 coffee/day-trying [facility], coffee/day-trying to avoid caffiene PC) 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 02/17 (-)Covid 02/17 lives with spouse lives with spouse and 1 child 1 and 1 child 1 grandchild grandchild exercises 2x/week exercises 2x/week Smoking 02/25/2020 Unknown if ever completed Unknown if ever MEDG EN (St 12:00:00 AM EDT smoked smoked [facility]) Vital Signs ID Date Data Source UNK Name Value Range Interpretation Code Description Data Source(s) Body mass index 30.9 kg/m2 30.9 kg/m2 [facility] (S t [facility] (BMI) [Ratio] Medical, ) Diastolic blood 86 mm[Hg] 86 mm[Hg] [facility] (S t [facility] pressure Medical, ) Systolic blood 138 mm[Hg] 138 mm[Hg] [facility] ([facility] pressure [facility], ) Body weight 180 lb 180 lb [facility] ([facility], ) Body height 64 in 64 in [facility] ([facility], ) Body mass index 30.9 kg/m2 30.9 kg/m2 [facility] (S t [facility] (BMI) [Ratio] Medical, ) Diastolic blood 82 mm[Hg] 82 mm[Hg] [facility] (S t [facility] pressure [facility], ) Systolic blood 116 mm[Hg] 116 mm[Hg] [facility] ([facility] pressure [facility], ) Body weight 180 lb 180 lb [facility] ([facility], ) Body height 64 in 64 in [facility] ([facility], ) Body mass index 30.9 kg/m2 30.9 kg/m2 MED[facility] (S t [facility] (BMI) [Ratio] Medical, ) Diastolic blood 82 mm[Hg] 82 mm[Hg] MED[facility] (S t [facility] pressure [facility], ) Systolic blood 116 mm[Hg] 116 mm[Hg] [facility] ([facility] pressure [facility], ) Body weight 180 lb 180 lb [facility] ([facility], ) Body height 64 in 64 in [facility] ([facility], ) Heart rate 60 /min 60 /min [facility] ([facility], ) Respiratory rate 15 /min 15 /min [facility] ( [place], ) Body mass index 31.8 kg/m2 31.8 kg/m2 [facility] (S t [facility] (BMI) [Ratio] Medical, ) Diastolic blood 70 mm[Hg] 70 mm[Hg] [facility] (S t [facility] pressure [facility], ) Systolic blood 120 mm[Hg] 120 mm[Hg] [facility] ([facility] pressure [facility], ) Body weight 185 lb 185 lb [facility] ([facility], ) Body height 64 in 64 in [facility] ([facility], ) Heart rate 60 /min 60 /min [facility] ([facility], ) Respiratory rate 15 /min 15 /min [facility] ( [facility], ) Body mass index 31.8 kg/m2 31.8 kg/m2 [facility] (S t [facility] (BMI) [Ratio] Medical, ) Diastolic blood 70 mm[Hg] 70 mm[Hg] MED[facility] (S t [facility] pressure Medical, ) Systolic blood 120 mm[Hg] 120 mm[Hg] [facility] ([facility] pressure [facility], ) Body weight 185 lb 185 lb [facility] ([facility], ) Body height 64 in 64 in [facility] ([facility], ) Heart rate 60 /min 60 /min [facility], ) Respiratory rate 15 /min 15 /min [facility] ( [facility], ) Body mass index 31.8 kg/m2 31.8 kg/m2 MED[facility] (S t [facility] (BMI) [Ratio] Medical, ) Diastolic blood 70 mm[Hg] 70 mm[Hg] [facility] (S t [facility] pressure Medical, ) Systolic blood 120 mm[Hg] 120 mm[Hg] [facility] ([facility] pressure [facility], ) Body weight 185 lb 185 lb [facility] ([facility], ) Body height 64 in 64 in [facility] ([facility], ) Heart rate 60 /min 60 /min [facility], ) Respiratory rate 15 /min 15 /min [facility] ( [facility], ) Body mass index 31.8 kg/m2 31.8 kg/m2 MED[facility] (S t [facility] (BMI) [Ratio] Medical, ) Diastolic blood 70 mm[Hg] 70 mm[Hg] MED[facility] (S t [facility] pressure Medical, ) Systolic blood 120 mm[Hg] 120 mm[Hg] [facility] ([facility] pressure [facility], ) Body weight 185 lb 185 lb [facility] ([facility], ) Body height 64 in 64 in [facility] ([facility], )
--- NOTE | 2020-04-05 13:31 | PATH ---
Surgical Pathology Report Patient Name: DAMIAN HATCH [facility]. Rec. #: [id number] /Age/Gender: 1965 (Age: 55) / F Account: [id number] Location: RADIOLOGY [facility] Taken: 04/04/2020 Received: 04/04/2020 Reported: 04/05/2020 Physicians: Neo Villanueva M.D. Specimen(s) Received RIGHT BREAST MASS 1-2:00 US-GUIDED CORE BIOPSY Clinical History Palpable mass Ultrasound findings: Suspicious Final Diagnosis BREAST, RIGHT, 1-2:00, US-GUIDED CORE BIOPSY: BENIGN BREAST TISSUE SHOWING FIBROADENOMA. Electronically Signed Comfort Covarrubias M.D. Gross Description Received in formalin labeled "right breast 1-2:00," is a 0.8 x 0.8 x 0.1 cm aggregate of padilla-yellow, irregular to cylindrical fragments of fibroadipose tissue. The formalin is filtered and the specimen is entirely submitted in one cassette. Time to formalin to fixation: < 1 minute Total formalin fixation time: Approximately 7 hours /04/04/2020 [facility]/04/04/2020
== END | disposition home or self-care (01) ==
LOC: JRADUS-SUR 10:06 → JMAMMO 10:06
PROVIDERS: ATTEND Family Medicine
PROC: 0H9T3ZX Drainage of Right Breast, Percutaneous Approach, Diagnostic (ICD-10-PCS; principal; 2020-04-04)
DX: D24.1 Benign neoplasm of right breast (principal)
CPT/HCPCS: 19083; 87899; 88305-TC; A4648